=== PATIENT | female | born 1985 | race Caucasian/White ===

== ENCOUNTER 2019-01-09 05:56 | Inpatient (IN) | payer BC, MEDICAID ==
[2019-01-09] VITALS (66 sets, daily range): BP systolic 91–153; BP diastolic 50–113
[~2019-01-09] VITALS: Ht 177.8 cm; Wt 99.2 kg
--- NOTE | 2019-01-09 06:11 | NUR ---
ALMA DELIA GARCIA presented to unit via ambulation from ED, accompanied by family, with c/o INDUCTION & LABOR. ALMA DELIA GARCIA weighed, gowned, voided, and to bed. EFHM and TOCO applied, VS taken. ALMA DELIA GARCIA oriented to bed controls, call light, TV, heat, and A/C controls.
[2019-01-09] MEDS ORDERED: PREN1TAB79 PO (06:13)
[2019-01-09] MEDS ORDERED: RANI-515 PO (06:13)
[2019-01-09] MEDS ORDERED: MINERAL OIL CONCENTRATE 99.9% 15 ML UDC TOP PRN (06:15)
[2019-01-09 07:00] LABS: BASOPHILS % (AUTO) 0 % (0-10); EOSINOPHILS # (AUTO) 0.1 10^3/uL (0.0-0.3); EOSINOPHILS % (AUTO) 1 % (0-10); HEMATOCRIT 38 % (35-52); HEMOGLOBIN 12.9 G/DL (11.5-16.0); LYMPHOCYTES # (AUTO) 2.1 X 10^3 (1.0-4.0); LYMPHOCYTES % (AUTO) 18 % (12-44); MEAN CORPUSCULAR HEMOGLOBIN 30 PG (25-34); MEAN CORPUSCULAR HGB CONC 34 G/DL (32-36); MEAN CORPUSCULAR VOLUME 89 FL (80-99); MEAN PLATELET VOLUME 12.5 FL (7.4-10.4); MONOCYTES # (AUTO) 0.8 X 10^3 (0.0-1.0); MONOCYTES % (AUTO) 7 % (0-12); NEUTROPHILS # (AUTO) 8.6 X 10^3 (1.8-7.8); NEUTROPHILS % (AUTO) 74 % (42-75); PLATELET COUNT 216 10^3/uL (130-400); RED CELL DISTRIBUTION WIDTH 15.1 % (10.0-14.5); WHITE BLOOD COUNT 11.5 10^3/uL (4.3-11.0)
[2019-01-09] MEDS: D5 LR IV SOLUTION 1,000 ML IV SCH ×3 (07:38→19:27)
[2019-01-09] MEDS ORDERED: OXYTOCIN/NORMAL SALINE 500 ML IV SCH ×2 (07:49→20:29)
[2019-01-09] MEDS ORDERED: fentaNYL INJECTION 100 MCG/2 ML AMP IVP PRN (08:00)
[2019-01-09] MEDS ORDERED: CATHETER FLUSH 10 ML SYR IV PRN ×2 (08:00→18:15)
--- NOTE | 2019-01-09 09:12 | History & Physical-OB ---
OB - Chief Complaint & HPI Date/Time Date of Admission: Date of Admission: Jan 09, 2019 at 05:56 Date seen by a Provider: Jan 09, 2019 Time Seen by a Provider: 09:06 Chief Complaint/History OB-Reason for Admission/Chief: Induction of Labor Hx : 4 Hx Para: 2 Expected Date of Delivery: Jan 13, 2019 Gestational Age in Weeks: 39 Gestational Age in Days: 3 Indication for induction: other (term elective inductioni) Allergies and Home Medications Allergies Coded Allergies: No Known Drug Allergies (Unverified , 01/09/19) Home Medications Vit W-Ca,Fe,FA(<1 mg) 1 Each Tablet, 1 EACH PO DAILY, (Reported) Ranitidine HCl 150 Mg Tablet, 150 MG PO DAILY, (Reported) Patient Home Medication List Home Medication List Reviewed: Yes OB - History Hx of Present Care: Yes Ultrasounds: Normal mid trimester US Obstetrical Complications: None Medical Complications: None Information Induced Hypertension: No Maternal Gestational Diabetes: No Hemorrhage: No Obstetrical History Hx : 4 Hx Para: 2 Hx # Term Pregnancies: 2 Number of Living Children: 2 Hx Total # of Abortions (Spona: 1 Hx Multiple Gestation: No Hx Ectopic : No Hx Stillbirth: No Hx Complication: No Hx Induced Hypertens: Yes Hx Maternal Gestational Diabet: No Hx Hemorrhage: No Delivery History Hx Dystocia: No Hx Forceps Assisted Delivery: No Hx Vacuum Extraction Assisted: No Hx Placenta Abnormality: No Hx Distress: No Hx Large For Gestational Age I: No Hx Small for Gestational Age I: No Hx Section: No Hx Vaginal Delivery Post C-Sec: No Hx Blood Disorders: No Adverse Rxn to Tranfusion: No Patient Past Medical History GERD Social History/Family History Recent Infectious Disease Expo: No Alcohol Use: Denies Use Recreational Drug Use: No Immunizations Tetanus Booster (TDap): Less than 5yrs RPR/VDRL: Negative GBS Status: Negative HBsAG: Negative OB - Admission Exam Physical Exam Vitals: Vital Signs 01/09/19 06:24 Temp 36.6 Pulse 93 Resp 18 B/P (MAP) 130/78 O2 Delivery Room Air Abdomen: Gravid Cervical Dilatation: 2cm Effacement: 75% Station: -3 Membranes: Intact Heart Rate: 140's Accelerations: Accelerations Present Decelerations: No Decelerations Vasques Scoring Tool (Modified) Vasques Score: 8 Labs Laboratory Tests Test 01/09/19 06:40 Range/Units White Blood Count 11.5 H 4.3-11.0 10^3/uL Red Blood Count 4.26 L 4.35-5.85 10^6/uL Hemoglobin 12.9 11.5-16.0 G/DL Hematocrit 38 35-52 % Mean Corpuscular Volume 89 80-99 FL Mean Corpuscular Hemoglobin 30 25-34 PG Mean Corpuscular Hemoglobin Concent 34 32-36 G/DL Red Cell Distribution Width 15.1 H 10.0-14.5 % Platelet Count 216 130-400 10^3/uL Mean Platelet Volume 12.5 H 7.4-10.4 FL Neutrophils (%) (Auto) 74 42-75 % Lymphocytes (%) (Auto) 18 12-44 % Monocytes (%) (Auto) 7 0-12 % Eosinophils (%) (Auto) 1 0-10 % Basophils (%) (Auto) 0 0-10 % Neutrophils # (Auto) 8.6 H 1.8-7.8 X 10^3 Lymphocytes # (Auto) 2.1 1.0-4.0 X 10^3 Monocytes # (Auto) 0.8 0.0-1.0 X 10^3 Eosinophils # (Auto) 0.1 0.0-0.3 10^3/uL Basophils # (Auto) 0.0 0.0-0.1 10^3/uL OB - Assessment/Plan/Diagnosis Assessment Assessment: induction of labor Admission Dx @ 39w3d elective IOL Admission Status: Inpatient Order (span 2 midnights) Reason for Inpatient Admission: L&D Plan Plan: Induction Induction Method: per Pitocin Protocol ROBE VICENTE DO Jan 09, 2019 09:11
--- NOTE | 2019-01-09 09:48 | Labor Progress Note ---
Labor Progress Note Labor Progress Note Date Seen by Provider: Jan 09, 2019 Time Seen by Provider: 09:30 Subjective: Pt starting to feel contractions Objective: Cervical exam: 3 Consistency: soft Position: post Presentation: vtx heart tones: 140 beats per minute, normal variability, reactive Tocometer: [] ctx/10 minutes Assessment/Plan: Lisbet Gibbs is a (33 /Para 4 / 2,Gestational Age (wks)39 here for []. CEFM/TOCO Anesthesia: none Anticipate vaginal delivery. While placing IFM, baby's hand moved in front of the head. Attempted to withdrawal the IFM but it was already attached. No fluid leaking initially and hand moved away. Patient then had large gush of clear fluid, followed by 3 deep variable decels. On SVE hand was palpable, no cord palpated. Pitocin stopped and patient place on side with improvement in decels. On recheck, hand not palpable 3/80/-3, ant; FHT reassuring. Will continue close monitoring. Dr. Manuel, OB ironer updated. Vitals - Labs Vital Signs - I&O Vital Signs Date Time Temp Pulse Resp B/P (MAP) Pulse Ox O2 Delivery O2 Flow Rate FiO2 01/09/19 06:24 36.6 93 18 130/78 Room Air Labs Laboratory Tests 01/09/19 06:40: White Blood Count 11.5H, Red Blood Count 4.26L, Hemoglobin 12.9, Hematocrit 38, Mean Corpuscular Volume 89, Mean Corpuscular Hemoglobin 30, Mean Corpuscular Hemoglobin Concent 34, Red Cell Distribution Width 15.1H, Platelet Count 216, Mean Platelet Volume 12.5H, Neutrophils (%) (Auto) 74, Lymphocytes (%) (Auto) 18, Monocytes (%) (Auto) 7, Eosinophils (%) (Auto) 1, Basophils (%) (Auto) 0, Neutrophils # (Auto) 8.6H, Lymphocytes # (Auto) 2.1, Monocytes # (Auto) 0.8, Eosinophils # (Auto) 0.1, Basophils # (Auto) 0.0 ROBE VICENTE DO Jan 09, 2019 09:48
[2019-01-09] MEDS ORDERED: CATHETER FLUSH 10 ML SYR IV SCH ×2 (14:00→22:00)
[2019-01-09] MEDS ORDERED: SUFENTA 0.6MCG/ML BUPIVA 0.125 100 ML ONE (16:26)
[2019-01-09] MEDS ORDERED: ONDANSETRON 4 MG/2 ML (SDV) Z0FRAN ONE (17:22)
[2019-01-09] MEDS ORDERED: fentaNYL INJECTION 100 MCG/2 ML AMP ONE (17:24)
[2019-01-09] MEDS ORDERED: BUPIVACAINE 0.25% 30 ML (SENSORCAINE) VIAL ONE (17:24)
--- NOTE | 2019-01-09 17:34 | NUR ---
1734 Yolie JAMISON CRNA here for epidural placement. Procedure explained, consent reviewed and signed by anesthesia. Questions answered to patient's satisfaction. Time out taken to verify correct patient/procedure. 1738 Patient up to side of bed, assisted into sitting position. 1743 Betadine prep done x3 and sterile drape applied. 1744 Local done, see anesthesia record. 1748 Test dose given, see anesthesia record for drug and dosage. Epidural catheter secured in place. Epidural placement complete. 1754 Assisted back into bed, monitors adjusted. Epidural dosed, see anesthesia record. Epidural of Sufenta/Bupvicaine @12cc/hr stated per pump. Patient tolerated procedure well.
[2019-01-09] MEDS ORDERED: BUPIVACAINE 0.5% 30 ML (SENSORCAINE) VIAL ONE (18:07)
[2019-01-09] MEDS ORDERED: LACTATED RINGERS 1,000 ML IV ONE (18:12)
[2019-01-09] MEDS ORDERED: NALOXONE 0.4 MG/ML 1 ML (NARCAN) VIAL IV PRN (18:15)
[2019-01-09] MEDS ORDERED: EPIDURAL (SUFENTA 0.6MCG/ML BUPIVA 0.125%) 100 ML BAG EPI SCH (18:15)
--- NOTE | 2019-01-09 19:00 | NUR ---
REFER TO LABOR FLOW SHEET.
[2019-01-09] MEDS ORDERED: LIDOCAINE/EPI 2% 1:200,00 (XYLOCAINE) 10 ML VIAL ONE (19:09)
[2019-01-09] MEDS ORDERED: IBUPROFEN 600 MG (MOTRIN) TAB PO ONE (20:23)
--- NOTE | 2019-01-09 20:26 | OB Labor & Delivery Record ---
Vag Delivery Note Vag Delivery Note Date of Delivery: 01/09/19 Preoperative Diagnosis: Lisbet Gibbs is a (33 /Para 4 / 2, Gestational Age (wks)39with IOL Postoperative Diagnosis: Same; s/p Surgeon: ROBE VICENTE Anesthesia: Epidural Delivery Type: Findings: Viable male infant, apgars 8/9, weight 6#6 Lacerations: none Intact placenta with 3 vessel cord. Nuchal cord x1, no body cord or shoulder dystocia Estimated Blood Loss: 100 ml Complications: None Condition: Stable Description of Procedure: The patient is a 33 year old female who presented for IOL. She was admitted and informed consent was obtained. Her labor course was remarkable for compound presentation with hand presenting. After obtaining adequate anesthesia when patient was 7-8cm dilated the hand was gently pushed back towards the maternal right side. Patient was placed in high fowlers position. On recheck hand was not palpable and she progressed to complete dilatation and began to push. She was then set up for delivery. The 's head was delivered atraumatically in the SUNNY position. The shoulders and remainder of the infant's body were then delivered without difficulty. Upon delivery, the head was held below the level of the perineum and the mouth and nares were bulb suctioned. The cord was doubly clamped and cut and the infant was placed. An intact placenta with 3-vessel cord delivered via Doug and there was found to be minimal bleeding.~ Vigorous fundal massage was performed and the fundus was found to be firm. IV oxytocin was given. Examination of the vagina and perineum revealed no lacerations. Following the repair, sponge, instrument and needle counts were correct. Mom and baby were both in stable condition in the labor suite. Vitals - Labs Vital Signs - I&O Vital Signs Date Time Temp Pulse Resp B/P (MAP) Pulse Ox O2 Delivery O2 Flow Rate FiO2 01/09/19 19:00 111 18 99/62 (74) 98 Room Air 01/09/19 18:44 104 18 92/59 (70) 97 Room Air 01/09/19 18:25 113 18 117/59 (78) 98 Room Air 01/09/19 18:20 36.4 114 18 118/60 (79) 97 Room Air 01/09/19 18:16 114 18 107/54 (71) 94 Room Air 01/09/19 18:08 67 18 112/53 (72) 94 Room Air 01/09/19 18:05 82 18 111/65 (80) 96 Room Air 01/09/19 18:02 89 18 112/59 (76) Room Air 01/09/19 18:00 100 18 112/56 (74) 94 Room Air 01/09/19 17:57 81 18 114/56 (75) Room Air 01/09/19 17:55 81 18 113/58 (76) 93 Room Air 01/09/19 17:51 99 18 126/66 (86) 97 Room Air 01/09/19 17:48 90 18 108/55 (72) Room Air 01/09/19 17:45 67 18 124/57 (79) 98 Room Air 01/09/19 17:42 88 18 135/61 (85) 99 Room Air 01/09/19 17:39 91 18 138/65 (89) Room Air 01/09/19 17:30 106 18 138/68 (91) Room Air 01/09/19 17:15 36.8 85 18 133/64 (87) Room Air 01/09/19 17:00 86 18 125/58 (80) Room Air 01/09/19 16:45 73 18 96/54 (68) Room Air 01/09/19 16:30 77 18 100/55 (70) Room Air 01/09/19 16:15 83 18 109/56 (73) Room Air 01/09/19 16:00 75 18 103/66 (78) Room Air 01/09/19 15:45 69 18 99/54 (69) Room Air 01/09/19 15:30 79 18 110/64 (79) Room Air 01/09/19 15:15 66 18 113/64 (80) Room Air 01/09/19 14:45 84 18 146/73 (97) Room Air 01/09/19 14:30 36.5 95 18 130/67 (88) Room Air 01/09/19 14:15 75 18 117/63 (81) Room Air 01/09/19 14:00 18 117/70 (86) Room Air 01/09/19 13:45 73 18 118/57 (77) Room Air 01/09/19 13:30 82 18 113/70 (84) Room Air 01/09/19 13:15 70 18 117/57 (77) Room Air 01/09/19 13:00 74 18 121/56 (77) Room Air 01/09/19 12:45 36.5 88 18 121/55 (77) Room Air 01/09/19 12:30 95 18 116/57 (76) Room Air 01/09/19 12:15 88 18 119/59 (79) Room Air 01/09/19 12:00 86 18 117/61 (79) Room Air 01/09/19 11:45 90 18 119/53 (75) Room Air 01/09/19 11:30 36.5 85 18 124/58 (80) Room Air 01/09/19 11:15 78 18 98/50 (66) Room Air 01/09/19 11:00 73 18 98/51 (67) Room Air 01/09/19 10:45 73 18 98/51 (67) Room Air 01/09/19 10:30 72 18 93/54 (67) Room Air 01/09/19 10:15 70 18 91/54 (66) Room Air 01/09/19 10:00 112 18 97/54 (68) Room Air 01/09/19 09:45 78 18 104/55 (71) Room Air 01/09/19 09:32 94 18 130/69 (89) Room Air 01/09/19 09:27 85 18 120/76 (91) Room Air 01/09/19 09:01 103 18 115/64 (81) Room Air 01/09/19 08:46 81 18 123/64 (83) Room Air 01/09/19 08:30 77 18 122/61 (81) Room Air 01/09/19 08:15 36.6 75 18 120/60 (80) Room Air 01/09/19 06:24 36.6 93 18 130/78 Room Air Labs Laboratory Tests 01/09/19 06:40: White Blood Count 11.5H, Red Blood Count 4.26L, Hemoglobin 12.9, Hematocrit 38, Mean Corpuscular Volume 89, Mean Corpuscular Hemoglobin 30, Mean Corpuscular Hemoglobin Concent 34, Red Cell Distribution Width 15.1H, Platelet Count 216, Mean Platelet Volume 12.5H, Neutrophils (%) (Auto) 74, Lymphocytes (%) (Auto) 18, Monocytes (%) (Auto) 7, Eosinophils (%) (Auto) 1, Basophils (%) (Auto) 0, Neutrophils # (Auto) 8.6H, Lymphocytes # (Auto) 2.1, Monocytes # (Auto) 0.8, Eosinophils # (Auto) 0.1, Basophils # (Auto) 0.0 ROBE VICENTE DO Jan 09, 2019 20:26
[2019-01-09] MEDS ORDERED: WITCH HAZEL(TUCKS) 40 EA JAR TOP PRN (20:30)
[2019-01-09] MEDS ORDERED: BENZOCAINE/MENTHOL (DERMOPLAST) 56 ML CAN TP PRN (20:30)
[2019-01-09] MEDS: IBUPROFEN 600 MG (MOTRIN) TAB PO SCH (20:33)
[2019-01-09] MEDS ORDERED: BENZOCAINE/MENTHOL (DERMOPLAST) 56 ML CAN TP ONE (21:27)
[2019-01-09] MEDS ORDERED: WITCH HAZEL(TUCKS) 40 EA JAR ONE (21:27)
--- NOTE | 2019-01-09 21:55 | NUR ---
Pt states is ready to move to room. Pericare performed in room. New vpad and underwear in place. Pt assisted into new gown. Fundus firm, 2 below. No excessive bleeding noted. Pt dangling feet at bedside, then assisted into wheelchair. Belongings gathered. Pt to room at time with family members, , and this RN at side. Pt oriented to new room. papers discussed. Pt denies any concerns at time. Encouraged to call if needing anything.
[2019-01-09] MEDS: DOCUSATE SODIUM 100 MG (COLACE) CAP PO SCH (23:42)
[2019-01-10] MEDS: ACETAMINOPHEN 500 MG TAB (TYLENOL) PO SCH ×3 (03:36→15:22)
[2019-01-10 03:39] VITALS: BP 94/53
[2019-01-10] MEDS: IBUPROFEN 600 MG (MOTRIN) TAB PO SCH ×3 (03:39→15:20)
[2019-01-10 05:11] LABS: BASOPHILS % (AUTO) 0 % (0-10); EOSINOPHILS # (AUTO) 0.1 10^3/uL (0.0-0.3); EOSINOPHILS % (AUTO) 1 % (0-10); HEMATOCRIT 32 % (35-52); HEMOGLOBIN 10.7 G/DL (11.5-16.0); LYMPHOCYTES # (AUTO) 2.6 X 10^3 (1.0-4.0); LYMPHOCYTES % (AUTO) 15 % (12-44); MEAN CORPUSCULAR HEMOGLOBIN 30 PG (25-34); MEAN CORPUSCULAR HGB CONC 33 G/DL (32-36); MEAN CORPUSCULAR VOLUME 90 FL (80-99); MEAN PLATELET VOLUME 12.4 FL (7.4-10.4); MONOCYTES # (AUTO) 1.2 X 10^3 (0.0-1.0); MONOCYTES % (AUTO) 7 % (0-12); NEUTROPHILS # (AUTO) 13.4 X 10^3 (1.8-7.8); NEUTROPHILS % (AUTO) 78 % (42-75); PLATELET COUNT 191 10^3/uL (130-400); RED CELL DISTRIBUTION WIDTH 15.4 % (10.0-14.5); WHITE BLOOD COUNT 17.3 10^3/uL (4.3-11.0)
[2019-01-10 06:37] LABS: LYMPHOCYTES % (MANUAL) 18 %; MONOCYTES % (MANUAL) 4 %; NEUTROPHILS % (MANUAL) 78 %
[2019-01-10] MEDS ORDERED: PRENATAL VITAMIN 1 EA TAB PO SCH (07:00)
[2019-01-10 08:59] VITALS: BP 118/58
[2019-01-10] MEDS: DOCUSATE SODIUM 100 MG (COLACE) CAP PO SCH (09:03)
--- NOTE | 2019-01-10 09:42 | Anesthesia-Regional Post-Op ---
Regional Patient Condition Mental Status: Alert, Oriented x3 Circulation: Same as Pre-Op Headache: Absent Sensation: Full Recovery Motor Block: Absent Post Op Complications Complications None Follow Up Care/Instructions Patient Instructions None needed. Anesthesia/Patient Condition Patient is doing well, no complaints, stable vital signs, no apparent adverse anesthesia problems. No complications reported per nursing. CINTHIA ROCK CRNA Jan 10, 2019 09:42
--- NOTE | 2019-01-10 14:08 | NUR ---
warm blanket given to place on abdomen for cramping
[2019-01-10 14:10] VITALS: BP 102/65
--- NOTE | 2019-01-10 19:33 | Postpartum Progress Note ---
Note Note Day # 1 Subjective: Patient is without complaints. Ambulating, voiding. Tolerating a regular diet without nausea or vomiting. Normal lochia. Pain is well controlled with oral pain medications. Breast feeding well Objective: Physical Exam: General - Alert and oriented, no apparent distress Abdomen - Soft, appropriately tender to palpation, non-distended, fundus firm at umbilicus Extremities - no edema, negative Manuelito's bilaterally Assessment: G4 now P3 post- day # 1, status post uncomplicated vaginal delivery. Recovering well, hemodynamically stable Plan: Routine care. Encourage breast feeding. Encourage ambulation Plan for discharge today if is ready for D/c 6 week f.u with Peter for post visit Vitals - Labs Vital Signs - I&O Vital Signs Date Time Temp Pulse Resp B/P (MAP) Pulse Ox O2 Delivery O2 Flow Rate FiO2 01/10/19 14:10 36.4 66 18 102/65 (77) 96 Room Air 01/10/19 08:59 36.9 74 18 118/58 (78) 97 Room Air 01/10/19 03:39 37.0 54 18 94/53 (67) 96 Room Air 01/09/19 23:42 36.7 71 18 105/64 (78) 98 Room Air 01/09/19 21:43 36.7 78 101/63 (76) Room Air 01/09/19 21:28 93 109/55 (73) Room Air 01/09/19 21:13 78 112/55 (74) Room Air 01/09/19 20:58 83 113/56 (75) Room Air 01/09/19 20:43 36.7 100 112/60 (77) Room Air 01/09/19 20:28 36.7 96 113/55 (74) Room Air 01/09/19 20:15 37.2 81 106/51 (69) 01/09/19 20:00 82 146/66 (92) 01/09/19 19:56 Non Rebreather 10.00 01/09/19 19:45 136 123/65 (84) Room Air I & O 01/10/19 07:00 Intake Total 3625 ml Balance 3625 ml Labs Laboratory Tests 01/10/19 05:00: White Blood Count 17.3H, Red Blood Count 3.55L, Hemoglobin 10.7L, Hematocrit 32L , Mean Corpuscular Volume 90, Mean Corpuscular Hemoglobin 30, Mean Corpuscular Hemoglobin Concent 33, Red Cell Distribution Width 15.4H, Platelet Count 191, Mean Platelet Volume 12.4H, Neutrophils (%) (Auto) 78H, Lymphocytes (%) (Auto) 15, Monocytes (%) (Auto) 7, Eosinophils (%) (Auto) 1, Basophils (%) (Auto) 0, Neutrophils # (Auto) 13.4H, Lymphocytes # (Auto) 2.6, Monocytes # (Auto) 1.2H, Eosinophils # (Auto) 0.1, Basophils # (Auto) 0.0, Neutrophils % (Manual) 78, Lymphocytes % (Manual) 18, Monocytes % (Manual) 4 01/10/19 05:20: ROBBIE COOK MD Jan 10, 2019 19:33
--- NOTE | 2019-01-10 19:35 | Discharge Summary ---
Diagnosis/Chief Complaint Date of Admission Jan 09, 2019 at 05:56 Date of Discharge 01/10/2019 Admission Diagnosis Admission Diagnosis Term 39 Week gestation IOL Discharge Diagnosis Uncomplicated Discharge Summary-Simple/Stand Procedures Discharge Physical Examination Allergies: Coded Allergies: No Known Drug Allergies (Unverified , 01/09/19) Vitals & I&Os Vital Sign - Last 12Hours Date Time Temp Pulse Resp B/P (MAP) Pulse Ox O2 Delivery O2 Flow Rate FiO2 01/10/19 14:10 36.4 66 18 102/65 (77) 96 Room Air 01/09/19 19:56 10.00 Intake and Output 01/10/19 00:00 Intake Total 3625 ml Balance 3625 ml General Appearance: Alert, Oriented X3, Cooperative, No Acute Distress HEENT: Mucous Memb Moist/[place] Respiratory: Clear to Auscultation, Normal Air Movement Cardiovascular: Regular Rate, No Murmurs Abdominal: Normal Bowel Sounds, Soft, Other (Fundus firm and below umbilicus) Extremities: No Edema, No Tenderness/Swelling Neuro: Strength at 5/5 X4 Ext, Sensation Intact Psych/Mental Status: Mental Status NL, Mood NL Hospital Course Was the Problem List Reviewed?: Yes See final discharge diagnosis. Discussion & Recommendations 33 yo G4 now P3 that presented for elective IOL. Proceeded to have uncomplicated of male at 39.3 wga. Discharge Condition at discharge stable Instructions to patient/family Please see electronic discharge instructions given to patient. Discharge Medications Reviewed and agree with Discharge Medication list on patient's Discharge Instruction sheet Clinical Quality Measures DVT/VTE Risk/Contraindication: Risk Factor Score Per Nursin RFS Level Per Nursing on Admit: 1=Low/No VTE PPX Copy Copies To 1: MARK YUNG MD, HOLLY R MD Jan 10, 2019 19:35
[2019-01-10] MEDS ORDERED: IBUP-844 PO (19:37)
--- NOTE | 2019-01-10 19:39 | Discharge Instructions ---
Discharge Inst-[facility] Reconcile Patient Problems Problems Reviewed?: Yes Depart Medications New, Converted or Re-Newed RX: Transmitted to Pharmacy New Medications: Ibuprofen (Ibu) 600 Mg Tablet 600 MG PO Q8hr, #90 TAB Continued Medications: Vit W-Ca,Fe,FA(<1 mg) ( Vitamins) 1 Each Tablet 1 EACH PO DAILY, TAB Discontinued Medications: Ranitidine HCl (Acid Identity Access Management Architect (RANITIDINE)) 150 Mg Tablet 150 MG PO DAILY, TAB Follow Up/Instructions Goal/Follow Up: [address] Yung Activity Activity: Activity as Tolerated Driving Instructions: You May Drive NO SMOKING: NO SMOKING Nothing Inside Vagina: No Douching, No [place], No Tampons Diet Discharge Diet: No Restrictions Symptoms to Report to : Bleeding Excessive, Pain Increased, Fever Over 101 Degrees F For Any Problems or Questions: Contact Your Physician Copies To 1: MARK YUNG MD, HOLLY R MD Jan 10, 2019 19:39
[2019-01-10 21:00] VITALS: BP 122/61
--- NOTE | 2019-01-10 21:00 | NUR ---
Paternity consent signed per fob, discharge packet given and explained to pt, and that vit d drops and ibuprofen called per to preferred pharmacy and if there was difficulty obtaining rx to call office. Pt aware rn unable to make follow up appointment as offices are closed and that she would need to call office for appointment, Understanding voiced per pt. No ss distress noted.
--- NOTE | 2019-01-10 21:20 | NUR ---
Pt ambulatory off unit at this time accompanied by family and Miguelito henley.
== END 2019-01-10 21:20 | disposition home or self-care (01) | DRG 807 ==
LOC: LDRP 05:56
PROVIDERS: ADMIT Family Medicine; ATTEND Family Medicine
PROC: 10E0XZZ Delivery of Products of Conception, External Approach (ICD-10-PCS; principal; 2019-01-09)
PROC: 3E033VJ Introduction of Other Hormone into Peripheral Vein, Percutaneous Approach (ICD-10-PCS; 2019-01-09)
DX: O75.89 Other specified complications of labor and delivery (principal); O76 Abnormality in fetal heart rate and rhythm complicating labor and delivery; O64.8XX0 Obstructed labor due to other malposition and malpresentation, not applicable or unspecified; O69.81X0 Labor and delivery complicated by cord around neck, without compression, not applicable or unspecified; Z3A.39 39 weeks gestation of pregnancy; Z37.0 Single live birth
CPT/HCPCS: 36415; 85007; 85025; 85027; 86762; 86850; 86900; 86901

== ENCOUNTER → 2019-11-30 | Outpatient (CLI) | payer BC, MEDICAID ==
[~2019-11-30] MED LIST: CATHETER FLUSH 10 ML SYR IV PRN; IBUP-844 PO; PREN1TAB79 PO; RANI-609 PO
[2019-11-30 09:39] LABS: HEMOGLOBIN 13.4 G/DL (11.5-16.0); MEAN PLATELET VOLUME 11.5 FL (7.4-10.4); WHITE BLOOD COUNT 8.7 10^3/uL (4.3-11.0)
[2019-11-30 10:02] LABS: ALANINE AMINOTRANSFERASE 10 U/L (0-55); ALBUMIN 4.1 GM/DL (3.2-4.5); ALKALINE PHOSPHATASE 76 U/L (40-136); BILIRUBIN,TOTAL 0.4 MG/DL (0.1-1.0); BUN/CREATININE RATIO 11; CARBON DIOXIDE 19 MMOL/L (21-32); CHLORIDE 108 MMOL/L (98-107); CREATININE SERUM 0.82 MG/DL (0.60-1.30); GFR ESTIMATED > 60; GLUCOSE 90 MG/DL (70-105); POTASSIUM 4.1 MMOL/L (3.6-5.0); SODIUM 141 MMOL/L (135-145); TOTAL PROTEIN 7.4 GM/DL (6.4-8.2)
--- NOTE | 2019-11-30 13:52 | Diagnostic Imaging Report ---
RADIOPHARMACEUTICAL: 5.05mCi Tc-99m Choletec IV INDICATION: Right upper quadrant pain COMPARISON: None available TECHNIQUE: Anterior dynamic imaging for 1 hour. Additional 60 minutes of imaging was obtained after the patient ingested an 8 ounce can of ensure plus. FINDINGS: There is homogenous uptake throughout the liver. The gallbladder is visualized at 10minutes and small bowel at 50minutes. After ingesting an 8 ounce can of ensure, the gallbladder ejection fraction is calculated to be 25.1%. IMPRESSION: 1. No evidence of acute cholecystitis or common duct obstruction. 2. Abnormally low GBEF of 25.1%. This can be seen with chronic acalculous cholecystitis versus biliary dyskinesia. Some medications can also result in abnormally low gallbladder ejection fraction. Dictated by: Dictated on workstation # [id number]
== END ==
LOC: CARD 09:15
PROVIDERS: ATTEND Family Medicine
DX: R10.11 Right upper quadrant pain (principal); R63.4 Abnormal weight loss; Z83.3 Family history of diabetes mellitus
CPT/HCPCS: 78227; 80053; 83036; 84443; 85027; A9537; 36415

== ENCOUNTER 2019-12-20 05:41 | Outpatient (CLI) | payer BC ==
[~2019-12-20] VITALS: Ht 177 cm; Wt 82.7 kg
[~2019-12-20 05:41] MED LIST changes: -CATHETER FLUSH 10 ML SYR IV PRN
[2019-12-20] MEDS ORDERED: PARO40TA PO (15:54)
== END 2019-12-20 16:01 | disposition home or self-care (01) ==
LOC: PREOP 05:41
PROVIDERS: ATTEND Surgery
DX: Z01.818 Encounter for other preprocedural examination (principal)